=== PATIENT | female | born 1975 | race Two or more races ===

== ENCOUNTER 2020-02-06 03:31 | Emergency (ER) | payer BC ==
[~2020-02-06] VITALS: Ht 152.4 cm; Wt 63.5 kg
[2020-02-06 03:38] VITALS: BP 124/78
== END 2020-02-06 05:07 | disposition home or self-care (01) ==
LOC: ER 03:34
DX: S13.9XXA Sprain of joints and ligaments of unspecified parts of neck, initial encounter (principal); S83.92XA Sprain of unspecified site of left knee, initial encounter; S83.91XA Sprain of unspecified site of right knee, initial encounter; V69.40XA Driver of heavy transport vehicle injured in collision with unspecified motor vehicles in traffic accident, initial encounter; Y93.89 Activity, other specified; Y92.89 Other specified places as the place of occurrence of the external cause; Y99.8 Other external cause status
CPT/HCPCS: 70450; 70486; 71045; 72125; 73562

== ENCOUNTER 2023-11-14 00:29 | Emergency (ER) | payer BC, OTHER ==
[~2023-11-14] VITALS: Ht 152.4 cm; Wt 64.2 kg
[2023-11-14 01:01] VITALS: BP 117/66; PULSE 78; RESP 14; TEMP 98.6; O2SAT 100
== END 2023-11-14 01:37 | disposition home or self-care (01) ==
LOC: ER 00:29
DX: T16.1XXA Foreign body in right ear, initial encounter (principal); W44.9XXA Unspecified foreign body entering into or through a natural orifice, initial encounter; Y93.89 Activity, other specified; Y92.89 Other specified places as the place of occurrence of the external cause; Y99.8 Other external cause status